=== PATIENT | female | born 1970 | race Caucasian/White ===

== ENCOUNTER 2018-02-09 11:36 | Observation (INO) | payer BC ==
[2018-02-09 11:47] VITALS: BMI 29.7
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
[2018-02-09] MEDS ORDERED: Sodium Chloride 0.9% 1,000 ML IV STA (12:25)
[2018-02-09 13:03] LABS: BASO # 0.1 K/uL (0.0-0.2); EOS # 0.2 K/uL (0.0-0.7); EOS % 2.9 % (0.0-4.0); HEMOGLOBIN 8.9 g/dL (12.0-16.0); LYMPH # 2.1 K/uL (1.0-4.3); LYMPH % 28.8 % (20.0-40.0); MEAN CORPUSCULAR HGB CONC 30.8 g/dL (33.0-37.0); MEAN PLATELET VOLUME 7.5 fl (7.2-11.7); MONO # 0.5 K/uL (0.0-0.8); MONO % 7.4 % (0.0-10.0); NEUT # 4.3 K/uL (1.8-7.0); NEUT % 59.9 % (50.0-75.0); NRBC % 0.1 % (0.0-0.0); RBC 4.21 Mil/uL (3.80-5.20); RED CELL DISTRIBUTION WIDTH 19.1 % (11.5-14.5); WHITE BLOOD COUNT 7.2 K/uL (4.8-10.8)
[2018-02-09 13:16] LABS: ALB/GLOB RATIO 1.3 (1.0-2.1); ALBUMIN 3.7 g/dL (3.5-5.0); ALT/SGPT 21 U/L (9-52); AST/SGOT 38 U/L (14-36); BLOOD UREA NITROGEN 12 mg/dl (7-17); CALCIUM 8.7 mg/dL (8.4-10.2); GFR NON-AFRICAN AMERICAN > 60
--- NOTE | 2018-02-09 13:32 | RAD ---
HISTORY: chest pain COMPARISON: Chest x-ray performed 03/11/12 TECHNIQUE: Chest, one view. FINDINGS: Examination limited by habitus. LUNGS: No focal consolidation. Please note that chest x-ray has limited sensitivity for the detection of pulmonary masses. PLEURA: No significant pleural effusion identified. No definite pneumothorax . CARDIOVASCULAR: Heart size appears top normal. OSSEOUS STRUCTURES: No acute osseous abnormality identified. VISUALIZED UPPER ABDOMEN: Unremarkable. OTHER FINDINGS: None. IMPRESSION: No focal consolidation identified.
[2018-02-09 14:35] LABS: MEAN CELL VOLUME 68.3 fl (81.0-99.0)
[2018-02-09] MEDS ORDERED: Iodixanol 320 MG/ML 100 ML BOTTLE IV ONE (15:31)
[2018-02-09] MEDS ORDERED: Sodium Chloride 0.9% 50 ML IV ONE (15:32)
--- NOTE | 2018-02-09 16:21 | CT ---
Date of service: 02/09/18 CTA chest PE protocol Indication: Right-sided chest pain Technique: Contiguous axial images were obtained through the chest with intravenous contrast enhancement. Sagittal and coronal reconstructions were generated and reviewed. This CT exam was performed using 1 or more of the following dose reduction techniques: Automated exposure control, adjustment of the MAA and/or kV according to patient size, and/or use of iterative reconstruction technique. IV Contrast: 70 mL Visipaque 320 Radiation dose (DLP): 336.00 MGy-cm. Comparison: Chest x-ray performed 02/09/18 Findings: The mediastinal and hilar vascular structures appear within normal limits. The heart appears within normal limits of size. Sub cm bilateral axillary lymph nodes, nonspecific. No large central or segmental pulmonary embolus evident. No focal consolidation. No pleural effusion. No pneumothorax. No suspicious pulmonary nodules measuring greater than 5 mm. Limited visualized portions of the upper abdomen appear grossly unremarkable. No acute osseous abnormality is detected. Impression: No large central or segmental pulmonary embolus identified.
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
[2018-02-09] MEDS ORDERED: ACETIC ACID SCH (21:00)
[2018-02-09] MEDS ORDERED: HYDROCORTISONE SCH (21:00)
[2018-02-10 04:52] VITALS: O2SAT 100
[2018-02-10 05:56] LABS: HEMOGLOBIN 8.7 g/dL (12.0-16.0); MEAN CELL VOLUME 68.4 fl (81.0-99.0); MEAN CORPUSCULAR HEMOGLOBIN 21.1 pg (27.0-31.0); MEAN CORPUSCULAR HGB CONC 30.9 g/dL (33.0-37.0); RBC 4.11 Mil/uL (3.80-5.20); RED CELL DISTRIBUTION WIDTH 18.7 % (11.5-14.5); WHITE BLOOD COUNT 8.2 K/uL (4.8-10.8)
[2018-02-10 06:28] LABS: FERRITIN 5.8 ng/Ml (6.24-137.0)
[2018-02-10] MEDS ORDERED: Levothyroxine 125 MCG TAB PO SCH (06:30)
[2018-02-10 07:11] LABS: IRON 19 ug/dL (37-170)
[2018-02-10 07:20] LABS: % IRON SATURATION 4 % (20-55); TOTAL IRON BINDING CAPACITY 459 ug/dL (250-450)
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
[2018-02-10 08:50] VITALS: TEMP 98
[2018-02-10 12:27] VITALS: BP 129/81; PULSE 66; RESP 18
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
--- NOTE | 2018-02-10 15:30 | CARD ---
APPROVED REPORT Date of service: 02/10/2018 EXAM: Two-dimensional and M-mode echocardiogram with Doppler and color Doppler. Other Information Quality : AverageRhythm : Technically limited study due to body habitus. INDICATION Chest Pain 2D DIMENSIONS IVSd1.03 (0.7-1.1cm)LVDd4.91 (3.9-5.9cm) PWd1.10 (0.7-1.1cm)LVDs3.44 (2.5-4.0cm) FS (%) 30.1 % M-Mode DIMENSIONS Left Atrium (MM)4.34 (2.5-4.0cm)IVSd1.00 (0.7-1.1cm) Aortic Root2.56 (2.2-3.7cm)LVDd4.73 (4.0-5.6cm) Aortic Cusp Exc.1.92 (1.5-2.0cm)PWd1.03 (0.7-1.1cm) IVSs1.28 cmFS (%) 42 % LVDs2.74 (2.0-3.8cm)PWs2.03 cm Mitral Valve MV E Jzrezuea720.2cm/sMV E Peak Gr.138mmHgMV DECEL [id number] MV A Gftxkycr28.1cm/sMV TSE33uoH/A ratio1.6 MVA (PHT)3.48cm2 TDI Lateral E' Peak V12.63cm/sMedial E' Peak V13.61cm/sE/Lateral E'8.1 E/Medial E'7.5 Tricuspid Valve TR Peak [id number]/sRAP [id number] Peak Gr.25mmHg [id number] LEFT VENTRICLE The left ventricle is normal size. There is normal left ventricular wall thickness. The left ventricular systolic function is normal. The estimated ejection fraction is 65-70% No regional wall motion abnormalities noted.. The left ventricular diastolic function is normal. No left ventricle thrombus noted on this study. There is no ventricular septal defect visualized. There is no mass noted in the left ventricle. RIGHT VENTRICLE The right ventricle is normal size. There is normal right ventricular wall thickness. The right ventricular systolic function is normal. ATRIA The left atrium size is mildly dilated The right atrium size is normal. The interatrial septum is intact with no evidence for an atrial septal defect. AORTIC VALVE The aortic valve is normal in structure. No aortic regurgitation is present. There is no aortic valvular stenosis. MITRAL VALVE The mitral valve is normal in structure. There is no mitral valve stenosis. There is mild mitral valve regurgitation noted. TRICUSPID VALVE The tricuspid valve is normal in structure. There is trivial tricuspid valve regurgitation noted. PASP within normal limits PULMONIC VALVE The pulmonary valve is normal in structure. There is trivial pulmonic valvular regurgitation. GREAT VESSELS The aortic root is normal in size. The ascending aorta is normal in size. The pulmonary artery is normal. The IVC is normal in size and collapses >50% with inspiration. PERICARDIAL EFFUSION There is no pericardial effusion. <Conclusion> Mild mitral insufficiency Trivial TR/PI with normal PAP Dilated left atrium Normal left ventricular function The estimated ejection fraction is 65-70%
[2018-02-10 15:42] LABS: FOLATE 11.2 ng/mL
--- NOTE | 2018-02-13 09:07 | CARD ---
APPROVED REPORT Date of service: 02/10/2018 EKG Measurement Heart [id number] CT [id number] <Conclusion> Normal sinus rhythm Normal ECG
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
== END 2018-02-10 14:25 | disposition home or self-care (01) ==
LOC: H.ER 11:36 → H.ERHOLD 14:02 → H.TEL 18:22
PROVIDERS: ADMIT Family Medicine Geriatric Medicine; ATTEND Family Medicine Geriatric Medicine
DX: R07.89 Other chest pain (principal); D50.9 Iron deficiency anemia, unspecified; E03.9 Hypothyroidism, unspecified; E07.89 Other specified disorders of thyroid; F17.200 Nicotine dependence, unspecified, uncomplicated
CPT/HCPCS: 36415; 70450; 71045; 71110; 71275; 72125; 80053; 81025; 82607; 82728; 82746; 83540; 83550; 83880; 84443; 84484; 85025; 85027; 85378; 93005; 93306; 96372; 99284; G0378; J3420; J7030; Q9967